=== PATIENT | female | born 1970 | race Caucasian/White ===

== ENCOUNTER 2022-04-24 13:01 | Outpatient (RCR) | payer BC, SELFPAY | END 2022-10-21 23:59 | disposition home or self-care (01) | LOC: CCIC 13:01 | PROVIDERS: PCP Physician Assistant; Visit Provider Internal Medicine Medical Oncology | DX: I82.409 Acute embolism and thrombosis of unspecified deep veins of unspecified lower extremity (principal); Z79.01 Long term (current) use of anticoagulants; N80.9 Endometriosis, unspecified | CPT/HCPCS: 99212; 99214; 99215 ==

== ENCOUNTER 2023-06-18 14:30 | Outpatient (RCR) | payer BC, SELFPAY ==
[2023-05-01 14:36] LABS: D Dimer Quantitative* < 0.27 ug/ml (0.00-0.50)
[2023-05-03 02:44] LABS: B2Glycoprotein 1, IgG Antibody <10 SGU (<=20); B2Glycoprotein 1, IgM Antibody <10 SMU (<=20)
[2023-05-03 17:50] LABS: Prothrombin Time 14.6 sec (12.0-15.5); dRVVT Screen 39 sec (33-44)
[2023-05-03 19:37] LABS: Antithrombin, Enzymatic 104 % (76-128)
[2023-05-03 19:54] LABS: Cardiolipin Antibody IgA <10 APL (<=11); Cardiolipin Antibody IgG <10 GPL (<=14); Cardiolipin Antibody IgM <10 MPL (<=12)
[2023-05-03 23:19] LABS: Protein C Functional 129 % (83-168); Protein S Functional 125 % (57-131)
[2023-05-06 07:54] LABS: FACV Specimen Whole Blood; Factor V Leiden (F5) Mutation Negative
[2023-05-22 16:23] LABS: PT PCR Specimen Whole Blood; Prothrombin(F2)G20210A Variant Negative
== END 2023-10-28 23:59 | disposition home or self-care (01) ==
LOC: CCIC 14:30
PROVIDERS: PCP Family Medicine; Visit Provider Internal Medicine Hematology & Oncology
DX: I82.401 Acute embolism and thrombosis of unspecified deep veins of right lower extremity (principal); Z79.01 Long term (current) use of anticoagulants; N80.9 Endometriosis, unspecified
CPT/HCPCS: 36415; 81240; 81241; 85300; 85303; 85306; 85379; 85610; 85613; 85730; 86146; 86147; 99212; 99213; 99214; 99441; 99442